=== PATIENT | male | born 1995 | race Two or more races ===

== ENCOUNTER 2017-03-26 08:17 | Emergency (ER) | payer OTHER ==
[~2017-03-26] VITALS: Ht 188 cm; Wt 77.1 kg
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
[2017-03-26] MEDS ORDERED: phenytoin SODIUM IV 1,000 MG in IV NS 0.9% 100 ML IV ONE (10:00)
--- NOTE | 2017-03-26 10:00 | NUR ---
Patient is resting comfortably in bed with eyes closed. Easily aroused. VSS
--- NOTE | 2017-03-26 11:00 | NUR ---
IV removed. Catheter intact and site benign. Pressure and 4x4 applied to site. No bleeding noted.
--- NOTE | 2017-03-26 11:15 | NUR ---
Patient discharged to home in stable condition. Written and verbal after care instructions given. Patient verbalizes understanding of instruction.
[2017-03-26 11:16] VITALS: BP 128/74
== END 2017-03-26 11:16 | disposition home or self-care (01) ==
LOC: ER 08:18
DX: G40.409 Other generalized epilepsy and epileptic syndromes, not intractable, without status epilepticus (principal)
CPT/HCPCS: 36415; 80185; 96365; 99284; A4606; J1165; J7030; Z7610

== ENCOUNTER 2017-06-07 13:31 | Emergency (ER) | payer OTHER ==
[~2017-06-07] VITALS: Ht 170.2 cm; Wt 72.6 kg
[2017-06-07] MEDS ORDERED: LIDOCAINE 2% 20 ML MDV ONE (13:45)
--- NOTE | 2017-06-07 13:48 | NUR ---
PATIENT TO ED DT SEIZURE-- PER PATIENT HE HAD UNWITNESSED SEIZURE. PATIENT HAS RIGHT LOWER EXTREMITY OPEN WOUND,. PT IS AFEBRILE. PT WITH HX OF SEIZURE
[2017-06-07] MEDS ORDERED: IBUPROFEN 600 MG TABLET PO ONE ×2 (14:46→15:00)
[2017-06-07 14:48] VITALS: BP 124/80
--- NOTE | 2017-06-07 14:48 | NUR ---
Patient discharged to home in stable condition. Written and verbal after care instructions given. Patient verbalizes understanding of instruction.
== END 2017-06-07 14:50 | disposition home or self-care (01) ==
LOC: ER 13:31
DX: S71.111A Laceration without foreign body, right thigh, initial encounter (principal); R56.9 Unspecified convulsions; W18.39XA Other fall on same level, initial encounter; Y93.89 Activity, other specified; Y92.89 Other specified places as the place of occurrence of the external cause; Y99.8 Other external cause status
CPT/HCPCS: 12002; 36415; 80164; 99283; A4606; A6402; J3490; Z7610

== ENCOUNTER 2017-06-22 18:07 | Emergency (ER) | payer OTHER ==
[~2017-06-22] VITALS: Ht 188 cm; Wt 72.6 kg
[2017-06-22 18:52] VITALS: BP 121/72
== END 2017-06-22 20:42 | disposition home or self-care (01) ==
LOC: ER 18:15
DX: S71.111D Laceration without foreign body, right thigh, subsequent encounter (principal)
CPT/HCPCS: 99281; A4606; Z7610; Z7502

== ENCOUNTER 2018-08-25 17:15 | Emergency (ER) | payer MEDICAID, OTHER ==
[~2018-08-25] VITALS: Ht 185.4 cm; Wt 79.4 kg
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
[2018-08-25 17:44] LABS: BASOPHILS % (AUTO) 0.5 % (0.0-2.0); EOSINOPHILS % (AUTO) 0.6 % (0.0-6.0); HEMATOCRIT 47 % (39-51); HEMOGLOBIN 15.7 g/dL (13.5-17.5); LYMPHOCYTES # (AUTO) 1.8 /CMM (0.8-4.8); LYMPHOCYTES % (AUTO) 28.4 % (20.0-44.0); MEAN CORPUSCULAR HGB CONC 33 g/dl (31.0-36.0); MEAN CORPUSCULAR VOLUME 96 fL (80-96); MONOCYTES # (AUTO) 0.5 /CMM (0.1-1.30); MONOCYTES % (AUTO) 8.3 % (2.0-12.0); NEUTROPHILS % (AUTO) 62.2 % (43.0-81.0); PLATELET COUNT (AUTO) 175 /CMM (150-450); WHITE BLOOD COUNT (AUTO) 6.4 K/uL (4.3-11.0)
[2018-08-25] MEDS ORDERED: TDAP [DIPH/PERTUSSIS/TET] 0.5 ML VIAL IM ONE ×2 (17:54→18:00)
[2018-08-25] MEDS ORDERED: LEVETIRACETAM (250 MG) 250 MG TABLET PO ONE ×2 (17:54→18:00)
[2018-08-25 17:57] LABS: CALCIUM, SERUM 8.7 mg/dL (8.5-10.1); CREATININE 1.1 mg/dL (0.6-1.3); POTASSIUM 3.5 mmol/L (3.5-5.1)
[2018-08-25] MEDS ORDERED: IV NS 0.9% 1,000 ML IV ONE (18:00)
--- NOTE | 2018-08-25 18:46 | NUR ---
Patient is resting comfortably in bed. Easily aroused. VSS. FAMILY AT BEDSIDE
--- NOTE | 2018-08-25 19:30 | NUR ---
IV removed. Catheter intact and site benign. Pressure and 4x4 applied to site. No bleeding noted.Patient discharged to home in stable condition. Written and verbal after care instructions given. Patient verbalizes understanding of instruction.
[2018-08-25 20:35] VITALS: BP 138/87
== END 2018-08-25 19:30 | disposition home or self-care (01) ==
LOC: ER 17:20
DX: S00.81XA Abrasion of other part of head, initial encounter (principal); G40.909 Epilepsy, unspecified, not intractable, without status epilepticus; X58.XXXA Exposure to other specified factors, initial encounter; Y93.89 Activity, other specified; Y92.89 Other specified places as the place of occurrence of the external cause; Y99.8 Other external cause status
CPT/HCPCS: 36415; 80048; 80164; 85025; 90471; 90715; 99283; A6403; J7030

== ENCOUNTER 2019-02-04 14:16 | Emergency (ER) | payer SELFPAY ==
[~2019-02-04] VITALS: Ht 188 cm; Wt 80.7 kg
[2019-02-04 14:18] VITALS: BP 144/85
--- NOTE | 2019-02-04 14:19 | NUR ---
AT BEDSIDE FOR EVAL.
[2019-02-04] MEDS ORDERED: LEVE500T9 PO (14:20)
[2019-02-04] MEDS ORDERED: DIVA500T2 PO (14:20)
[2019-02-04] MEDS ORDERED: LEVETIRACETAM (500MG) 1,000 MG in IV NS 0.9% 100 ML IV SCH (14:30)
[2019-02-04] MEDS ORDERED: IV NS 0.9% 1,000 ML BAG IV ONE (14:30)
[2019-02-04] MEDS ORDERED: ACETAMINOPHEN 325 MG TABLET PO ONE (14:30)
[2019-02-04] MEDS ORDERED: ACETAMINOPHEN 325 MG TABLET ONE (14:32)
--- NOTE | 2019-02-04 15:23 | NUR ---
Patient discharged to home in stable condition. Written and verbal after care instructions given. Patient verbalizes understanding of instruction.
== END 2019-02-04 15:24 | disposition home or self-care (01) ==
LOC: ER 14:19
DX: R56.9 Unspecified convulsions (principal); R51 Headache; Z79.899 Other long term (current) drug therapy
CPT/HCPCS: 96365; 99283; J1953; J7030 ×2